=== PATIENT | male | born 1985 | race Hispanic/Latino ===

== ENCOUNTER 2021-12-24 22:10 | Emergency (ER) | payer SELFPAY ==
[2021-12-24] MEDS ORDERED: Acetaminophen 500 MG TAB ONE (23:39)
== END 2021-12-24 23:48 | disposition home or self-care (01) ==
LOC: ERS 22:10
DX: S93.401A Sprain of unspecified ligament of right ankle, initial encounter (principal); X50.1XXA Overexertion from prolonged static or awkward postures, initial encounter; Y93.39 Activity, other involving climbing, rappelling and jumping off